=== PATIENT | female | born 1985 | race Caucasian/White ===

== ENCOUNTER 2018-02-23 19:54 | Emergency (ER) | payer SELFPAY ==
[2018-02-23 20:06] VITALS: BP 147/92; PULSE 73; TEMP 98; BMI 29.2
[2018-02-23] MEDS ORDERED: diphenhydrAMINE HCL 25 MG CAPSULE (FP) PO ONE ×2 (20:52→20:54)
[2018-02-23] MEDS ORDERED: predniSONE 20 MG TABLET (UD) PO ONE (20:52)
[2018-02-23] MEDS ORDERED: predniSONE 20 MG TABLET (UD) ONE (20:54)
--- NOTE | 2018-02-23 20:57 | PDOC ---
History of Present Illness - General Chief Complaint: Rash Stated Complaint: RASH Time Seen by Provider: 02/23/18 20:37 History Source: Patient Exam Limitations: No Limitations - History of Present Illness Initial Comments: 02/23/18 20:53 32-year-old female with no past medical history presents to the ED with pruritic rash and hives involving her neck lower arms and legs. Patient states similar symptoms occurred 2 weeks ago but resolved within hours. Patient states has been itching but denies any difficulty swallowing, throat itchiness, or tongue swelling. Patient denies history of allergies and denies any recent change in topicals, shampoos, linens or sprays. Timing/Duration: reports: this morning Location: reports: extremities Respiratory Risk Factors: reports: no cause identified Associated Symptoms: reports: rash Past History - Travel Traveled outside of the country in the last 30 days: No - Past Medical History Allergies/Adverse Reactions: Allergies Allergy/AdvReac Type Severity Reaction Status Date / Time No Known Allergies Allergy Verified 02/23/18 19:59 Home Medications: Ambulatory Orders Diphenhydramine HCl [Benadryl -] 25 mg PO Q8H PRN #15 capsule 02/23/18 predniSONE [Deltasone -] 40 mg PO DAILY #6 tablet 02/23/18 - Suicide/Smoking/Psychosocial Hx Smoking History: Never smoked Have you smoked in the past 12 months: No Information on smoking cessation initiated: No Hx Alcohol Use: No Drug/Substance Use Hx: No Patient Lives Alone: No Lives with/in: spouse/SO Review of Systems - Review of Systems Able to Perform ROS?: Yes Constitutional: No: Symptoms Reported HEENTM: No: Symptoms Reported Respiratory: No: Symptoms reported Cardiac (ROS): No: Symptoms Reported ABD/GI: No: Symptoms Reported : No: Symptoms Reported Musculoskeletal: No: Symptoms Reported Integumentary: Yes: Pruritus, Rash Neurological: No: Symptoms reported Endocrine: No: Symptoms Reported Hematologic/Lymphatic: No: Symptoms Reported *Physical Exam - Vital Signs Last Vital Signs Temp Pulse Resp BP Pulse Ox 98.0 F 73 16 147/92 100 02/23/18 19:57 02/23/18 19:57 02/23/18 19:57 02/23/18 19:57 02/23/18 19:57 - Physical Exam General Appearance: Yes: Nourished, Appropriately Dressed. No: Apparent Distress HEENT: positive: EOMI, MITZI, TMs Normal, Pharynx Normal. negative: Pale Conjunctivae Neck: positive: Supple Respiratory/Chest: positive: Lungs Clear, Normal Breath Sounds. negative: Respiratory Distress, Accessory Muscle Use Cardiovascular: negative: Regular Rhythm, Regular Rate, Murmur Gastrointestinal/Abdominal: positive: Soft. negative: Tenderness Extremity: positive: Normal Capillary Refill Integumentary: positive: Hives, Rash Neurologic: positive: Motor Strength 5/5 (ambulatory) Medical Decision Making - Medical Decision Making 02/23/18 20:56 Patient here for evaluation of pruritic rash. Patient denies any environmental factors. Patient ordered for Benadryl and prednisone. She'll be discharged home with the same. *DC/Admit/Observation/Transfer Diagnosis at time of Disposition: Allergic contact dermatitis - Discharge Dispostion Disposition: HOME Condition at time of disposition: Good - Prescriptions Prescriptions: Diphenhydramine HCl [Benadryl -] 25 mg PO Q8H PRN #15 capsule PRN Reason: For Itching predniSONE [Deltasone -] 40 mg PO DAILY #6 tablet - Referrals - Patient Instructions Printed Discharge Instructions: DI for General Allergic Reactions Additional Instructions: Please take Benadryl 25 mg every 8 hours as needed for itching. Please take prednisone starting tomorrow since your given your first dose here in the ER. - Post Discharge Activity
== END 2018-02-23 21:03 | disposition home or self-care (01) ==
LOC: JER 19:54 → JERFT 19:54
DX: L23.9 Allergic contact dermatitis, unspecified cause (principal)
CPT/HCPCS: 99281-25

== ENCOUNTER 2020-10-15 23:56 | Emergency (ER) | payer OTHER ==
[2020-10-16 00:02] VITALS: PULSE 91; TEMP 98; BMI 31.1
[2020-10-16] MEDS ORDERED: MAGNESIUM SULF 50% (8.12 MEQ/2 ML-1 GM VIAL) IVPB ONE (01:25)
[2020-10-16] MEDS ORDERED: MAGNESIUM SULFATE IN WATER 2 GM/50 ML IVPB IVPB ONE (01:52)
[2020-10-16 01:53] LABS: BASO % 0.7 % (0-2.0); EOS % 1.6 % (0-4.5); HEMATOCRIT 37.6 % (32.4-45.2); HEMOGLOBIN 12.8 GM/dL (10.7-15.3); LYMPH % 33.6 % (8-40); MCH 31.9 pg (25.7-33.7); MEAN CELL VOLUME 93.7 fl (80-96); MEAN PLT VOLUME 7.9 fl (7.5-11.1); NEUT % 55.1 % (42.8-82.8); PLATELET COUNT 360 K/MM3 (134-434); RBC 4.01 M/mm3 (3.60-5.2); WHITE BLOOD COUNT 9.8 K/mm3 (4.0-10.0)
[2020-10-16 02:09] LABS: CHLORIDE 104 mmol/L (98-107); POTASSIUM 3.7 mmol/L (3.5-5.1); SODIUM 137 mmol/L (136-145)
[2020-10-16 02:13] LABS: ALBUMIN 3.3 g/dl (3.4-5.0); ANION GAP 6 MMOL/L (8-16); BLOOD UREA NITROGEN 11.3 mg/dL (7-18); CALCIUM 8.6 mg/dL (8.5-10.1); CO2 26 mmol/L (21-32); GLUCOSE,RANDOM 99 mg/dL (74-106)
[2020-10-16 02:16] LABS: CREATININE 0.7 mg/dL (0.55-1.3); SGOT/AST 16 U/L (15-37); SGPT/ALT 21 U/L (13-61)
[2020-10-16 02:18] LABS: BILIRUBIN,TOTAL 0.3 mg/dL (0.2-1); TOT PROT 7.3 g/dl (6.4-8.2)
[2020-10-16 02:25] LABS: EPI CELLS 33 /uL (0-25.1); HYALINE CASTS 1 /uL (0-3.1); PH,URINE 7.5 (5.0-8.0); URINE APPEARANCE CLEAR; URINE BACTERIA 562 /uL (0-1359); URINE BILIRUBIN NEGATIVE (NEGATIVE); URINE COLOR YELLOW; URINE GLUCOSE (UA) NEGATIVE (NEGATIVE); URINE KETONE NEGATIVE (NEGATIVE); URINE LEUK ESTERASE 1+ (NEGATIVE); URINE NITRITE NEGATIVE (NEGATIVE); URINE PROTEIN NEGATIVE (NEGATIVE); URINE RBC 23 /uL (0-23.9); URINE WBC 48 /uL (0-25.8)
[2020-10-16 02:34] LABS: ALK PHOS 85 U/L (45-117)
[2020-10-16 03:56] VITALS: BP 134/77
[2020-10-16] MEDS ORDERED: CEPHALEXIN MONOHYDRATE 500 MG CAPSULE (UD) PO ONE (03:57)
[2020-10-16] MEDS ORDERED: CEPHALEXIN MONOHYDRATE 500 MG CAPSULE (UD) ONE (03:59)
== END 2020-10-16 04:06 | disposition home or self-care (01) ==
LOC: JER 23:56
PROC: 3E033NZ Introduction of Analgesics, Hypnotics, Sedatives into Peripheral Vein, Percutaneous Approach (ICD-10-PCS; principal; 2020-10-16)
PROC: 3E033GC Introduction of Other Therapeutic Substance into Peripheral Vein, Percutaneous Approach (ICD-10-PCS; 2020-10-16)
DX: T78.40XA Allergy, unspecified, initial encounter (principal)
CPT/HCPCS: 36415; 76801-TC; 80053; 81003; 82550; 84484; 85025; 99285-25

== ENCOUNTER 2020-10-17 05:03 | Emergency (ER) | payer OTHER ==
[2020-10-17 05:27] VITALS: BMI 27.0
[2020-10-17] MEDS ORDERED: ACETAMINOPHEN 325 MG TABLET (FP) ONE (05:44)
[2020-10-17] MEDS ORDERED: ACETAMINOPHEN 325 MG TABLET (FP) PO ONE (05:52)
[2020-10-17 06:03] LABS: BASO % 0.9 % (0-2.0); EOS % 2.3 % (0-4.5); HEMATOCRIT 39.7 % (32.4-45.2); HEMOGLOBIN 13.3 GM/dL (10.7-15.3); LYMPH % 33.7 % (8-40); MCH 31.2 pg (25.7-33.7); MCHC 33.5 g/dl (32.0-36.0); MEAN CELL VOLUME 93.3 fl (80-96); MEAN PLT VOLUME 7.6 fl (7.5-11.1); MONO % 7.4 % (3.8-10.2); NEUT % 55.7 % (42.8-82.8); PLATELET COUNT 377 K/MM3 (134-434); RBC 4.26 M/mm3 (3.60-5.2); RDW 12.7 % (11.6-15.6); WHITE BLOOD COUNT 10.7 K/mm3 (4.0-10.0)
[2020-10-17 06:16] LABS: POTASSIUM 4.5 mmol/L (3.5-5.1)
[2020-10-17 06:19] LABS: CALCIUM 8.9 mg/dL (8.5-10.1)
[2020-10-17 06:20] LABS: ALBUMIN 3.3 g/dl (3.4-5.0); BLOOD UREA NITROGEN 6.3 mg/dL (7-18)
[2020-10-17 06:23] LABS: CREATININE 0.5 mg/dL (0.55-1.3)
[2020-10-17 06:24] LABS: BILIRUBIN,TOTAL 0.6 mg/dL (0.2-1); TOT PROT 7.7 g/dl (6.4-8.2)
[2020-10-17] MEDS ORDERED: HEPARIN NA (PORCINE) 5,000 UNITS/ML 1ML VIAL ONE (07:07)
[2020-10-17 08:10] LABS: EPI CELLS 10 /uL (0-25.1); HYALINE CASTS 1 /uL (0-3.1); URINE APPEARANCE CLEAR; URINE BACTERIA 78 /uL (0-1359); URINE BILIRUBIN NEGATIVE (NEGATIVE); URINE COLOR YELLOW; URINE GLUCOSE (UA) NEGATIVE (NEGATIVE); URINE KETONE NEGATIVE (NEGATIVE); URINE LEUK ESTERASE NEGATIVE (NEGATIVE); URINE NITRITE NEGATIVE (NEGATIVE); URINE PROTEIN NEGATIVE (NEGATIVE); URINE RBC 1572 /uL (0-23.9); URINE UROBILINOGEN 0.2 mg/dL (0.2-1.0); URINE WBC 6 /uL (0-25.8)
[2020-10-17 08:54] VITALS: BP 130/89; PULSE 75; TEMP 98.6
== END 2020-10-17 09:00 | disposition home or self-care (01) ==
LOC: JER 05:03
DX: O20.0 Threatened abortion (principal)
CPT/HCPCS: 36415; 76801-TC; 80053; 81003; 84702; 85025; 86850; 86900; 86901; 99284-25

== ENCOUNTER 2021-05-09 06:40 | Inpatient (IN) | payer OTHER ==
[2021-05-09 07:54] LABS: BASO % 0.4 % (0-2.0); EOS % 1.4 % (0-4.5); HEMATOCRIT 33.1 % (32.4-45.2); HEMOGLOBIN 11.1 GM/dL (10.7-15.3); MCH 29.9 pg (25.7-33.7); MCHC 33.6 g/dl (32.0-36.0); MEAN PLT VOLUME 9.3 fl (7.5-11.1); MONO % 7.7 % (3.8-10.2); NEUT % 61.5 % (42.8-82.8); PLATELET COUNT 256 10^3/uL (134-434); RBC 3.72 M/mm3 (3.60-5.2); RDW 12.7 % (11.6-15.6); WHITE BLOOD COUNT 8.6 K/mm3 (4.0-10.0)
[2021-05-09 07:58] LABS: BLOOD UREA NITROGEN 7.5 mg/dL (7-18); CALCIUM 8.4 mg/dL (8.5-10.1)
[2021-05-09 08:02] LABS: CREATININE 0.4 mg/dL (0.55-1.3); INR 0.87 (0.83-1.09); PROTHROMBIN TIME (PATIENT) 10.8 SEC (9.7-13.0)
[2021-05-09 08:04] LABS: ACTIVATED PTT 24.9 SECONDS (25.2-36.5)
[2021-05-09 08:11] VITALS: BMI 32.2
[2021-05-09] MEDS ORDERED: morphine SULFATE/PF 0.5 MG/ML (2cc Syringe - QUVA) ONE (08:13)
[2021-05-09] MEDS ORDERED: OXYTOCIN 20 UNITS in 0.9% NS 20 UNIT/1,000 ML INFUS.BAG IV ONE (08:15)
[2021-05-09] MEDS ORDERED: CITRIC ACID/SODIUM CITRATE 30 ML UNIT-DOSE CUP PO ONE (08:38)
[2021-05-09 08:55] LABS: HIV INTERPRETATION NEGATIVE (NEGATIVE)
[2021-05-09] MEDS ORDERED: ONDANSETRON 4 MG/2 ML VIAL ONE (09:40)
[2021-05-09] MEDS ORDERED: KETOROLAC TROMETHAMINE 30 MG/1 ML VIAL ONE (09:40)
[2021-05-09] MEDS ORDERED: GLYCOPYRROLATE 0.2 MG/1 ML VIAL ONE (09:40)
[2021-05-09] MEDS ORDERED: PHENYLEPHRINE HCL 10 MG/1 ML SINGLE DOSE VIAL ONE (09:40)
[2021-05-09] MEDS ORDERED: DEXAMETHASONE SOD PHOSPHATE 4 MG/1 ML VIAL ONE (09:40)
[2021-05-09] MEDS ORDERED: ceFAZolin SODIUM 1 GM VIAL ONE (09:40)
[2021-05-09] MEDS ORDERED: SENNOSIDES/DOCUSATE COMBO (SENNA PLUS) TABLET (UD) PO PRN (09:45)
[2021-05-09] MEDS ORDERED: IBUPROFEN 800 MG/8 ML IJ IVPB PRN (09:45)
[2021-05-09] MEDS ORDERED: OXYTOCIN 20 UNITS in 0.9% NS 20 UNIT/1,000 ML INFUS.BAG IV SCH (09:45)
[2021-05-09] MEDS ORDERED: ONDANSETRON 4 MG/2 ML VIAL IVPB PRN (09:45)
[2021-05-09] MEDS ORDERED: oxyCODONE HCL 5 MG TABLET PO PRN (09:45)
[2021-05-09] MEDS ORDERED: morphine SULFATE/PF 0.5 MG/ML (2cc Syringe - QUVA) EP ONE (11:24)
[2021-05-09] MEDS ORDERED: LABETALOL HCL 200 MG TABLET (FP) PO ONE (13:30)
[2021-05-09] MEDS ORDERED: ELECTROLYTE-148 SOLN 1,000 ML IV SCH (15:00)
[2021-05-09] MEDS: CEFAZOLIN 2 GM/D5W 2 GM/50 ML ML IVPB SCH (17:18)
[2021-05-10] MEDS: ACETAMINOPHEN 1000 MG/100 ML VIAL (NON FORMULARY) IVPB PRN ×2 (00:42→07:46)
[2021-05-10] MEDS: CEFAZOLIN 2 GM/D5W 2 GM/50 ML ML IVPB SCH (01:44)
[2021-05-10 08:55] LABS: EOS % 0.4 % (0-4.5); HEMATOCRIT 29.6 % (32.4-45.2); HEMOGLOBIN 9.5 GM/dL (10.7-15.3); LYMPH % 19.5 % (8-40); MCH 29.3 pg (25.7-33.7); MCHC 32.2 g/dl (32.0-36.0); MEAN PLT VOLUME 9.1 fl (7.5-11.1); MONO % 5.9 % (3.8-10.2); NEUT % 70.2 % (42.8-82.8); PLATELET COUNT 254 10^3/uL (134-434); RBC 3.25 M/mm3 (3.60-5.2); RDW 12.7 % (11.6-15.6)
[2021-05-10] MEDS ORDERED: BISACODYL 10 MG SUPP.RECT RC PRN (09:45)
[2021-05-10 11:16] LABS: ANISOCYTOSIS 1+; MACROCYTOSIS 0; PLATELET ESTIMATE NORMAL
[2021-05-10] MEDS: SIMETHICONE 80 MG TAB.CHEW (FP) PO PRN (16:21)
[2021-05-10] MEDS: IBUPROFEN 600 MG TABLET (FP) PO PRN ×2 (16:21→23:28)
[2021-05-10] MEDS: ACETAMINOPHEN 325 MG TABLET (FP) PO PRN ×2 (16:22→23:29)
[2021-05-10] MEDS ORDERED: LABETALOL HCL 200 MG TABLET (FP) PO ONE ×2 (22:43→22:45)
[2021-05-11 08:30] VITALS: TEMP 97.8
[2021-05-11] MEDS: IBUPROFEN 600 MG TABLET (FP) PO PRN (09:33)
[2021-05-11] MEDS: SIMETHICONE 80 MG TAB.CHEW (FP) PO PRN (09:34)
[2021-05-11] MEDS: ACETAMINOPHEN 325 MG TABLET (FP) PO PRN (09:34)
[2021-05-11] MEDS ORDERED: LABETALOL HCL 100 MG TABLET (FP) PO SCH (10:00)
[2021-05-11 12:25] VITALS: BP 135/79; PULSE 78
== END 2021-05-11 12:40 | disposition home or self-care (01) | DRG 540 ==
LOC: JLDR 06:40 → J3W 11:20
PROVIDERS: ADMIT Specialist; ATTEND Specialist
PROC: 10D00Z1 Extraction of Products of Conception, Low, Open Approach (ICD-10-PCS; principal; 2021-05-09)
DX: O34.219 Maternal care for unspecified type scar from previous cesarean delivery (principal); O34.13 Maternal care for benign tumor of corpus uteri, third trimester; D25.9 Leiomyoma of uterus, unspecified; Z3A.39 39 weeks gestation of pregnancy
CPT/HCPCS: 36415; 80048; 85025; 85610; 85730; 86780; 86850; 86900; 86901; 87389; 88307-TC; J0131